=== PATIENT | male | born 1940 | race Caucasian/White ===

== ENCOUNTER 2017-02-11 12:04 | Outpatient (CLI) | payer SELFPAY | END 2017-02-11 12:05 | disposition EMS.NT | LOC: EMS 12:04 | PROVIDERS: ATTEND Surgery | DX: H53.8 Other visual disturbances (principal); W57.XXXA Bitten or stung by nonvenomous insect and other nonvenomous arthropods, initial encounter; Y93.H2 Activity, gardening and landscaping; Y92.007 Garden or yard of unspecified non-institutional (private) residence as the place of occurrence of the external cause ==

== ENCOUNTER 2021-03-05 12:56 | Outpatient (CLI) | payer MEDICARE ==
--- NOTE | 2021-03-05 13:37 | XRAY Report ---
PROCEDURE: Knee 3 View RT INDICATIONS: CONTUSION OF RIGHT KNEE TECHNIQUE: 3 views of the right knee(s) were acquired. COMPARISON: None. FINDINGS: Bones: Ill-defined radiolucency and cortical irregularity involving lateral tibial plateau is seen marin ggestive of minimally displaced fracture. No other fracture or dislocation is seen. Mild to moderate tricompartmental osteoarthritis is noted. No suspicious bony lesions. Soft tissues: Moderate suprapatellar joint effusion is seen suggestive of hemarthrosis. No suspicious soft tissue calcifications. IMPRESSION: Suggestion of minimally displaced lateral tibial plateau fracture with moderate hemarthr osis. Mild to moderate tricompartmental osteoarthritis. Reviewed by: Harry Mullen MD on 03/05/2021 1:36 PM PDT Approved by: Harry Mullen MD on 03/05/2021 1:36 PM PDT Station ID: [id number]
== END 2021-03-05 23:59 | disposition home or self-care (01) ==
LOC: DI.S 12:56
PROVIDERS: ATTEND Physician Assistant Medical
DX: S80.01XA Contusion of right knee, initial encounter (principal); M25.061 Hemarthrosis, right knee; M17.11 Unilateral primary osteoarthritis, right knee

== ENCOUNTER 2021-04-09 10:15 | Outpatient (CLI) | payer MEDICARE ==
--- NOTE | 2021-04-09 15:38 | XRAY Report ---
PROCEDURE: Knee 4 View RT INDICATIONS: R KNEE PX TECHNIQUE: 4 views of the right knee(s) were acquired. COMPARISON: 03/05/2021 FINDINGS: Bones: Redemonstration of cortical irregularity of the lateral tibial plateau compatible with minimal ly displaced lateral tibial plateau fracture. There is persistent sclerosis surrounding the suspected fracture site. Tricompartmental degenerative changes are present.. No suspicious bony lesions. Soft tissues: Small residual suprapatellar joint effusion.. No suspicious soft tissue calcifications . Vascular calcifications are noted. IMPRESSION: Redemonstration of suspected lateral tibial plateau fracture with interval decrease in size of suprap atellar joint effusion. Tricompartmental osteoarthrosis of the right knee. Reviewed by: Aristeo Noriega MD on 04/09/2021 3:37 PM PDT Approved by: Aristeo Noriega MD on 04/09/2021 3:37 PM PDT Station ID: [id number]
--- NOTE | 2021-04-09 17:17 | XRAY Report ---
PROCEDURE: Foot 3 View RT INDICATIONS: R HEEL PX TECHNIQUE: 3 views of the foot were acquired. COMPARISON: None FINDINGS: Bones: No fractures or dislocations. No suspicious bony lesions. The bones are somewhat osteopenic. Soft tissues: No tibiotalar joint effusion. Achilles tendon appears normal. Extensive small vessel calcifications typically indicates diabetes. IMPRESSION: Mild diffuse osteopenia. No evidence acute bony abnormality of the right foot. If clinical suspicion and/or symptoms persist, further assessment with repeat plain films or advanced imaging (e.g., CT, MRI, or bone scan) may be helpful for further assessment. Reviewed by: Juan Pablo Angulo MD on 04/09/2021 5:16 PM PDT Approved by: Juan Pablo Angulo MD on 04/09/2021 5:16 PM PDT Station ID: [id number]
== END 2021-04-09 23:59 | disposition home or self-care (01) ==
LOC: DI.N 10:15
PROVIDERS: ATTEND Physician Assistant
DX: M79.671 Pain in right foot (principal); M85.871 Other specified disorders of bone density and structure, right ankle and foot; M17.11 Unilateral primary osteoarthritis, right knee; M25.461 Effusion, right knee; R93.6 Abnormal findings on diagnostic imaging of limbs